=== PATIENT | male | born 1980 | race Caucasian/White ===

== ENCOUNTER → 2025-02-12 | Outpatient (REF) | payer OTHER ==
[~2025-02-12] MED LIST: LIDOCAINE HCL 1% 30ML-PF VIAL ONE
== END ==
LOC: DX 08:26
PROVIDERS: ATTEND Student in an Organized Health Care Education/Training Program
DX: Z45.2 Encounter for adjustment and management of vascular access device (principal)
CPT/HCPCS: 36589; J2003

== ENCOUNTER 2025-03-31 13:49 | Inpatient (IN) | payer OTHER ==
[~2025-03-31] VITALS: Ht 177.8 cm; Wt 75.3 kg
[2025-03-31 14:05] VITALS: PULSE 89; RESP 16; TEMP 98.2
[2025-03-31] MEDS ORDERED: SODIUM CHLORIDE FLUSH 10 ML SYR INJ PRN (14:15)
[2025-03-31] MEDS ORDERED: ONDANSETRON HCL INJ 2MG/ML 2ML 2 MG/ML VIAL IV PRN ×2 (14:15→14:45)
[2025-03-31] MEDS ORDERED: HYDROCODONE/APAP 5MG-325MG TAB PO PRN (14:45)
[2025-03-31] MEDS ORDERED: ACETAMINOPHEN 325 MG TAB PO PRN (14:45)
[2025-03-31 14:48] LABS: BASOPHILS # (AUTO) 0.1 (0.0-0.1); BASOPHILS % 0.7 % (0.0-1.0); EOSINOPHILS # (AUTO) 0.7 (0.0-0.4); EOSINOPHILS % 5.3 % (0.0-6.0); HEMATOCRIT 41.5 % (38.2-49.6); HEMOGLOBIN 13.9 g/dL (14.0-18.0); LYMPHOCYTES # (AUTO) 3.3 (1.0-3.2); LYMPHOCYTES % 27.2 % (18.0-39.1); MEAN CORPUSCULAR HEMOGLOBIN 30.3 pg (28-32); MEAN CORPUSCULAR HGB CONC 33.5 g/dL (31-35); MEAN CORPUSCULAR VOLUME 90.4 fL (81-99); MONOCYTES # (AUTO) 0.9 (0.2-0.8); MONOCYTES % 7.1 % (4.4-11.3); NEUTROPHILS # (AUTO) 7.3 (2.1-6.9); NEUTROPHILS % 59.5 % (38.7-80.0); PLATELET COUNT 204 x10e3/uL (140-360); RED BLOOD COUNT 4.59 x10e6/uL (4.3-5.7); RED CELL DISTRIBUTION WIDTH 14.2 % (11.7-14.4); WHITE BLOOD COUNT 12.26 x10e3/uL (4.8-10.8)
[2025-03-31 14:55] LABS: INR 1.15; PROTHROMBIN TIME 15.7 seconds (11.9-14.5)
[2025-03-31 14:56] LABS: PARTIAL THROMBOPLASTIN TIME 32.9 seconds (23.8-35.5)
[2025-03-31] MEDS: Vancomycin IV 1 GM in SODIUM CHLORIDE 0.9% 250ML 250 ML IV SCH (14:57)
[2025-03-31] MEDS ORDERED: GADOBENATE DIMEGLUMINE 1 ML IV ONE (15:05)
[2025-03-31 15:51] LABS: ALBUMIN 3.8 g/dL (3.5-5.0); ALBUMIN/GLOBULIN RATIO 1.4 (0.8-2.0); ANION GAP 13.7 mmol/L (8-16); BILIRUBIN,TOTAL 0.7 mg/dL (0.2-1.2); CALCIUM 9.5 mg/dL (8.4-10.2); CREATININE, SERUM 1.01 mg/dL (0.72-1.25); POTASSIUM 3.7 mmol/L (3.5-5.1); TOTAL PROTEIN 6.6 g/dL (6.5-8.1)
[2025-03-31 16:15] VITALS: BP 123/75; PULSE 88; RESP 18; TEMP 98.4; O2SAT 100
[2025-03-31 16:40] VITALS: BP 123/75; PULSE 88; RESP 18; TEMP 98.5; O2SAT 100
[2025-03-31] MEDS: HYDROCODONE/APAP 10MG-325MG TAB PO PRN (18:19)
[2025-03-31 20:00] VITALS: BP 134/81; PULSE 87; RESP 20; TEMP 97.5; O2SAT 100
[2025-03-31] MEDS ORDERED: ZOLPIDEM TARTRATE 5 MG TAB PO PRN (21:00)
[2025-03-31] MEDS ORDERED: BISACODYL 10 MG SUPP PR PRN (21:15)
[2025-03-31] MEDS ORDERED: HYDRALAZINE HCL 20 MG/ML VIAL IV PRN (21:15)
[2025-03-31] MEDS ORDERED: POLYETHYLENE GLYCOL 3350 17 GM PACK PO PRN (21:15)
[2025-03-31] MEDS ORDERED: DEXTROSE 50% SYRINGE 50 ML IV PRN (21:15)
[2025-04-01] VITALS (7 sets, daily range): BP systolic 129–140; BP diastolic 63–86; PULSE 72–89; RESP 18–19; TEMP 97.8–98.3; O2SAT 97–100
[2025-04-01 06:22] LABS: BASOPHILS # (AUTO) 0.1 (0.0-0.1); BASOPHILS % 0.9 % (0.0-1.0); EOSINOPHILS # (AUTO) 0.7 (0.0-0.4); EOSINOPHILS % 6.2 % (0.0-6.0); HEMOGLOBIN 13.8 g/dL (14.0-18.0); LYMPHOCYTES # (AUTO) 4.2 (1.0-3.2); LYMPHOCYTES % 36.6 % (18.0-39.1); MEAN CORPUSCULAR HEMOGLOBIN 30.7 pg (28-32); MEAN CORPUSCULAR HGB CONC 33.7 g/dL (31-35); MEAN CORPUSCULAR VOLUME 91.1 fL (81-99); MONOCYTES # (AUTO) 0.9 (0.2-0.8); MONOCYTES % 7.6 % (4.4-11.3); NEUTROPHILS # (AUTO) 5.5 (2.1-6.9); NEUTROPHILS % 48.5 % (38.7-80.0); PLATELET COUNT 189 x10e3/uL (140-360); RED CELL DISTRIBUTION WIDTH 14.1 % (11.7-14.4); WHITE BLOOD COUNT 11.38 x10e3/uL (4.8-10.8)
[2025-04-01 06:59] LABS: ANION GAP 12.8 mmol/L (8-16); CALCIUM 9.2 mg/dL (8.4-10.2); CREATININE, SERUM 0.79 mg/dL (0.72-1.25); POTASSIUM 3.8 mmol/L (3.5-5.1)
[2025-04-01] MEDS: INSULIN LISPRO 100 UNIT/1 ML 3ML VIAL SQ SCH (07:30)
[2025-04-01] MEDS ORDERED: DEXAMETHASONE SOD PHOS INJ 4 MG/ML SDV ONE (13:26)
[2025-04-01] MEDS ORDERED: ONDANSETRON HCL INJ 2MG/ML 2ML 2 MG/ML VIAL ONE (13:26)
[2025-04-01] MEDS ORDERED: LIDOCAINE HCL 2% LOCAL INJ 5 ML SDV VIAL INJ ONE (13:26)
[2025-04-01] MEDS ORDERED: PROPOFOL IV EMULSION 10 MG/ML 20 ML VIAL ONE (13:26)
[2025-04-01] MEDS ORDERED: MIDAZOLAM HCL 2 MG/2 ML VIAL ONE (13:27)
[2025-04-01] MEDS ORDERED: FENTANYL CITRATE/PF 100MCG/2 ML INJ ONE (13:27)
[2025-04-01] MEDS ORDERED: DOXYCYCLINE HY100 MG PO (18:40)
[2025-04-01] MEDS ORDERED: CEPHALEXIN500 MG PO (18:40)
== END 2025-04-01 19:05 | disposition home or self-care (01) | DRG 629 ==
LOC: ER 14:08 → ERHOLD 14:13 → MED/SURG3 16:40
PROVIDERS: ADMIT Internal Medicine; ATTEND Internal Medicine
PROC: 3E0V329 Introduction of Other Anti-infective into Bones, Percutaneous Approach (ICD-10-PCS; 2025-04-01)
PROC: 0QBQ0ZZ Excision of Right Toe Phalanx, Open Approach (ICD-10-PCS; principal; 2025-04-01 13:35)
DX: E11.69 Type 2 diabetes mellitus with other specified complication (principal); I69.354 Hemiplegia and hemiparesis following cerebral infarction affecting left non-dominant side; M86.671 Other chronic osteomyelitis, right ankle and foot; Q21.12 Patent foramen ovale; M84.477A Pathological fracture, right toe(s), initial encounter for fracture; E11.42 Type 2 diabetes mellitus with diabetic polyneuropathy; E11.59 Type 2 diabetes mellitus with other circulatory complications; G89.4 Chronic pain syndrome; F17.210 Nicotine dependence, cigarettes, uncomplicated; F10.11 Alcohol abuse, in remission; Z71.81 Spiritual or religious counseling; Z79.899 Other long term (current) drug therapy; Z79.01 Long term (current) use of anticoagulants
CPT/HCPCS: 36415; 80048; 80053; 82948; 83036; 83735; 84134; 85025; 85610; 85730; 86140; 87040; 88304; 88305; 88311; 93926; 99252; 99284; J0690; J1100; J2003; J2250; J2405; J7050